=== PATIENT | male | born 1985 | race American Indian/Alaskan Native ===

== ENCOUNTER 2017-12-10 13:51 | Inpatient (IN) | payer MEDICAID, OTHER ==
[2017-12-10 15:54] LABS: BASO % 0.4 % (0.0-2.0); EOS # 0.1 K/uL (0.0-0.7); EOS % 1.1 % (0.0-4.0); HEMOGLOBIN 13.9 g/dL (12.0-18.0); LYMPH # 2.1 K/uL (1.0-4.3); LYMPH % 26.5 % (20.0-40.0); MEAN CELL VOLUME 88.2 fL (80.0-94.0); MEAN CORPUSCULAR HEMOGLOBIN 29.7 pg (27.0-31.0); MEAN CORPUSCULAR HGB CONC 33.6 g/dL (33.0-37.0); MEAN PLATELET VOLUME 7.5 fL (7.2-11.7); MONO # 0.7 K/uL (0.0-0.8); MONO % 8.8 % (0.0-10.0); NEUT % 63.2 % (50.0-75.0); RBC 4.68 Mil/uL (4.40-5.90); RED CELL DISTRIBUTION WIDTH 13.5 % (11.5-14.5); WHITE BLOOD COUNT 7.9 K/uL (4.8-10.8)
[2017-12-10 16:06] LABS: ALB/GLOB RATIO 1.4 (1.0-2.1); ALBUMIN 4.3 g/dL (3.5-5.0); ALT/SGPT 19 U/L (21-72); AST/SGOT 16 U/L (17-59); BLOOD UREA NITROGEN 17 mg/dL (9-20); CALCIUM 9.3 mg/dl (8.6-10.4); GFR AFRICAN-AMERICAN > 60; GFR NON-AFRICAN AMERICAN > 60
--- NOTE | 2017-12-10 16:08 | C.PDOC ---
History Of Present Illness 32 y/o male presents to ED with suicidal thoughts and states "I don't feel good ". Patient states he is homeless and admits to taking PCP yesterday. Denies taking any medication. No h/o seizures. Denies chest pain, sob, abdominal pain, or trauma. Time Seen by Provider: 12/10/17 15:02 Chief Complaint (Nursing): Psychiatric Evaluation History Per: Patient History/Exam Limitations: no limitations Onset/Duration Of Symptoms: Days Current Symptoms Are (Timing): Still Present Suicide/Self Injury Attempted (Context): None Modifying Factor(s): Narcotics Past Medical History Reviewed: Historical Data, Nursing Documentation, Vital Signs Vital Signs: Last Vital Signs Temp 97.6 F 12/10/17 19:47 Pulse 71 12/10/17 19:47 Resp 18 12/10/17 19:47 BP 110/72 12/10/17 19:47 Pulse Ox 96 12/10/17 19:47 - Medical History PMH: No Chronic Diseases Surgical History: No Surg Hx Family History: States: No Known Family Hx - Social History Hx Alcohol Use: Yes Hx Substance Use: Yes - Immunization History Hx Tetanus Toxoid Vaccination: No Hx Influenza Vaccination: No Hx Pneumococcal Vaccination: No Review Of Systems Constitutional: Negative for: Fever, Chills Gastrointestinal: Negative for: Nausea, Vomiting Skin: Negative for: Rash Psych: Positive for: Suicidal ideation. Negative for: Withdrawal Physical Exam - Physical Exam Appears: Non-toxic, No Acute Distress (calm cooperative), Unkempt Skin: Warm, Dry, No Rash Head: Atraumatic, Normacephalic Eye(s): bilateral: Normal Inspection, EOMI Nose: Normal Oral Mucosa: Moist Neck: Normal ROM, Supple Chest: Symmetrical Cardiovascular: Rhythm Regular Respiratory: Normal Breath Sounds, No Rales, No Rhonchi, No Wheezing Gastrointestinal/Abdominal: Soft, No Tenderness, No Guarding, No Rebound Extremity: Normal ROM, Capillary Refill (<2 seconds) Neurological/Psych: Oriented x3, Normal Speech, Normal Cognition ED Course And Treatment - Laboratory Results Result Diagrams: 12/10/17 15:48 12/10/17 15:48 O2 Sat by Pulse Oximetry: 99 (RA) Pulse Ox Interpretation: Normal Progress Note: Pending crisis eval Disposition - Disposition Disposition: HOSPITALIZED Disposition Time: 19:00 Condition: STABLE - Clinical Impression Clinical Impression: Depression, Drug abuse - PA / ICU CLERK / Resident Statement MD/DO has reviewed & agrees with the documentation as recorded. - Scribe Statement The provider has reviewed the documentation as recorded by the Trenaibjay Velez All medical record entries made by the Jens were at my direction and personally dictated by me. I have reviewed the chart and agree that the record accurately reflects my personal performance of the history, physical exam, medical decision making, and the department course for this patient. I have also personally directed, reviewed, and agree with the discharge instructions and disposition.
[2017-12-10 17:48] LABS: SQUAMOUS EPITHIAL < 1 /hpf (0-5); URINE BACTERIA RARE (<OCC); URINE BILIRUBIN NEGATIVE (NEGATIVE); URINE BLOOD NEGATIVE (NEGATIVE); URINE CLARITY Clear (Clear); URINE COLOR Yellow (YELLOW); URINE GLUCOSE (UA) NORMAL (Normal); URINE LEUKOCYTE ESTERASE NEG Leu/uL (Negative); URINE PROTEIN NEGATIVE (NEGATIVE); URINE UROBILINOGEN NORMAL mg/dL (0.2-1.0)
[2017-12-10 18:04] LABS: BARBITURATES, UR NEGATIVE (NEGATIVE); BENZODIAZEPINES, UR NEGATIVE (NEGATIVE); OPIATES, UR NEGATIVE (NEGATIVE)
[2017-12-10 18:07] LABS: PHENCYCLIDINE, UR POSITIVE (NEGATIVE)
--- NOTE | 2017-12-10 19:40 | PCM.BM ---
<Janett Whitley - Last Filed: 12/10/17 19:38> Treatment Plan Problems - Problems identified on initial assessmt Depression Date Initiated: 12/10/17 Time Initiated: 19:30 Assessment reference: NA Status: Active Suicide Ideation Date Initiated: 12/10/17 Time Initiated: 19:30 Assessment reference: NA Status: Active Treatment assets and liabiliti Patient Assests: cooperative, negotiates basic needs Patient Liabilities: financial problems, poor support system, substance abuse ( Alcohol, Marijuana and PCP), legal issue (Homeless) - Milieu Protocol Maintain good personal hygiene: daily Encourage regular showers, every shift Remind patient to perform daily oral care, every shift Assist patient to perform ADL's Conduct patient checks and document Observation sheet: Q15 minutes Maintain personal safety: every shift Educate patient to report safety concerns to staff, every shift Monitor environment for contraband/sharps Medication safety: Monitor for expected outcome, potential side effects: every shift, Assess barriers to learning: every shift, Assess readiness for medication education: every shift <Adri Daniels - Last Filed: 12/12/17 19:00> - Diagnosis (1) Depression Status: Acute Interventions: 12/12/17 19:00 * Assess/adjust medications daily and /or as needed * See patient on an individual basis 7x/week to assess symptoms of depression * Monitor for side effects & effectiveness of medications * (2) Drug abuse Status: Acute Interventions: 12/12/17 19:00 * Assess 7x/week regarding severity of withdrawal * Educate regarding risks, benefits, side effects and alternatives of medications * Use Motivational Interviewing for abstinence * Use CBT for relapse prevention * Medication management for withdrawal symptoms * Encourage medication assisted treatment * <Eileen Stewart - Last Filed: 12/14/17 11:24> Family Contact Family involvement: Famliy/SO not involved - Goals for Treatment Patient goals for treatment: "I want to go to rehab." Discharge/Continuing Care - Education Needs Education Needs: Patient Medication, Patient Coping Skills, Patient Placement options, Patient Community resources - Discharge Discharge Criteria: Tolerates medication w/o severe side effects, Reduction of target symptoms Discharge to:: Substance Abuse Rehab - Treatment Team Participation Discussed with Family/SO: No Was Patient/Family/SO present at Treatment Team Meeting: Yes
[2017-12-11] MEDS: Multiple Vitamins Tab PO SCH (10:21)
--- NOTE | 2017-12-11 10:46 | PCM.PSYCH ---
Initial Psychiatric Evaluation - Initial Psychiatric Evaluation Type of Admission: Voluntary Legal Status: Capacity Chief Complaint (in patient's own words): "I don't feel good." History of Present Illness and Precipitating Events: Patient is a 32 year old AA male with a history of poly substance abuse and homelessness self-referred to [facility] for a psych eval. Please note that patient was triaged as Ezequiel Farah but per [facility] clinician Jorge Davis who verified patents report his correct legal name is Pedro Iqabl. Patient states on assessment, "I don't feel good. I'm suicidal, depressed, angry and homeless." Patient also report not eating. Patient repeated this statement throughout the assessment. Often in response to yes or no questions. Patient repeated it as if he as reading off a script. Patients plan to kill himself is to Stop my pulse. Bakery Machine Mechanic Supervisor asked patient how he would do this and he gestured by placing his hands around his neck and stated like this. In fact patient reports a history of a previous attempt the same way. Patient also reports he had been feeling homicidal prior to arrival with the plan to kill Najafeh Sessions. Patients speech is very softy and mumbled so the name is not clear. When asked his plan, patient states I was going to kill him. Patient reports using alcohol, marijuana and PCP daily. Patient is a poor historian and when asked about his psych history he reported only a history at [facility]. Patient could not provide this news writer names of any meds. Patient denies taking any psych meds at any point. Obtaining medical history from patient was difficult. He reports a history of seizure (had one the other day) as well as high bp and diabetes. This is not verified. Patient reports being homeless for the past 5 years and is currently living on [address]. Patient states he hears voices, mostly his mom. Patient is paranoid; he feels people on the street are following him and trying to take all his money. He states he was sent here by Adama Manzano and was suppose to play in the [employer]. Per collateral patient was seen in [facility] in 2004 and transferred to [facility]. Patient was 19 years old at the time and presented with homicidal ideation with a plan to purchase a gun and kill his entire family. Patient was also using marijuana daily and given the diagnosis of Bipolar disorder. Patient has no history of visits as an adult for psych or detox at [facility]. Psych history: Bipolar Disorder, Alcohol Use Disorder Medical history: Denies Allergies: NKDA Family Hx: Substance Use Current Medications: Active Medications Generic Name Dose Route Start Last Admin Trade Name Freq PRN Reason Stop Dose Admin Folic Acid 1 mg 12/11/17 10:00 12/11/17 10:21 Folic Acid PO 1 mg DAILY ADARSH Administration Gabapentin 400 mg 12/11/17 10:00 12/11/17 10:21 Neurontin PO 400 mg TID ADARSH Administration Hydroxyzine HCl 50 mg 12/10/17 23:39 Atarax PO Q6H PRN Anxiety Ibuprofen 600 mg 12/10/17 23:39 Motrin Tab PO Q6H PRN Pain, moderate (4-7) Lorazepam 1 mg 12/10/17 23:39 Ativan PO Q6H PRN severe agitation Multivitamins 1 tab 12/11/17 10:00 12/11/17 10:21 Hexavitamin PO 1 tab DAILY ADARSH Administration Pneumococcal Polyvalent Vaccine 0.5 ml 12/12/17 10:00 Pneumovax 23 Vaccine IM 12/12/17 10:01 .ONCE ONE Sertraline HCl 50 mg 12/11/17 10:00 12/11/17 10:21 Zoloft PO 50 mg DAILY ADARSH Administration Thiamine HCl 100 mg 12/11/17 10:00 12/11/17 10:21 Vitamin B1 Tab PO 100 mg DAILY ADARSH Administration Trazodone HCl 100 mg 12/11/17 22:00 Desyrel PO [facility] Past Psychiatric History - Past Psychiatric History Previous Treatment History: Inpatient Prior Psychiatric Treatment: [facility] History of ETOH/Drug Use: Alcohol use Disorder PCP Use Cannabis Use Disorder Pertinent Medical Hx (Current Medical&Sleep Prob, Allergies): Allergies Allergy/AdvReac Type Severity Reaction Status Date / Time No Known Allergies Allergy Verified 12/10/17 14:24 No Known Home Med 12/10/17 Review of Systems - Review of Systems All systems: reviewed and no additional remarkable complaints except - Psychiatric Psychiatric: Auditory Hallucinations, Depression, Hallucinations, Homicidal Ideation, Paranoia, Suicidal Ideation. absent: Anxiety, Hopelessness Mental Status Examination - Personal Presentation Personal Presentation: Looks older than stated age - Affect Affect: Broad - Motor Activity Motor Activity: Calm - Reliability in Providing Information Reliability in Providing Information: Poor, due to alteration in thoughts, Poor , due to altered mood - Speech Speech: Disorganized, Tangential - Mood Mood: Euphoric, Homicidal Ideation - Formal Thought Process Formal Thought Process: Hallucinations, Delusions, Paranoia, Loosening of associations, Flight of ideas - Hallucinations/Delusions Hallucinations: Auditory Delusions: Granduer, Persecution - Obsessions/Compulsions Obsessions: No Compulsions: No - Cognitive Functions Orientation: Person, Situation Sensorium: Alert Attention/Concentration: Attentive, Easily distracted Abstract Thinking: [place] Estimate of Intelligence: Below average Judgement: Imparied, as evidence by: Poor judgement, Imparied, as evidence by: Lack of insight into illness - Risk Risk: Suicidal, Homicidal, Diminished functioning - Limitations Limitations: Living alone DSM 5 DX - DSM 5 DSM 5 Diagnosis: Bipolar disorder mixed severe with psychotic features R/O Schizoaffective disorder bipolar type Alcohol Use Disorder, moderate PCP use disorder moderate - Recommended/Plan of Treatment Treatment Recommendations and Plan of Treatment: Bipolar disorder mixed severe with psychotic features R/O Schizoaffective disorder bipolar type Alcohol Use Disorder, moderate PCP use disorder moderate Start Zoloft 50mg Start Gabapentin 400mg TID Start Trazadone 100mg for sleep Proloxin 5 mg PO BID Cogentin 1 mg PO BID All risks, benefits and alternatives of the meds discussed, and the pt agreed and understood. Attend groups and activities Individual therapy daily Psychoeducation and support daily Encourage compliance with meds and after care Refer to outpatient program Teach healthy lifestyle methods, i.e. diet, exercise, meditation Smoking cessation and patch
[2017-12-12] MEDS: Multiple Vitamins Tab PO SCH (09:37)
[2017-12-12] MEDS ORDERED: Pneumococcal 23-Valent Vaccine IM ONE (10:00)
--- NOTE | 2017-12-12 18:59 | PCM.PYCHPN ---
Psychiatric Progress Note - Psychiatric Progress Note Patient seen today, length of contact: 15 min Patient Chief Complaint: "I don't feel good." Problems Identified/Issues Discussed: Patient seen and evaluated, chart reviewed and discussed with the nurse. Patient remained disorganized and internally preoccupied. Patient still appears paranoid and delusional. He reports depressed mood and he remained isolated, confined and withdrawn. Patient is compliant with medications and denies any side effects. Support and psychoeducation given. Medication Change: Yes Medical Record Reviewed: Yes Mental Status Examination - Cognitive Function Orientation: Person, Place, Situation, Time Memory: Intact Attention: Poor Concentration: Poor Association: Loose Fund of Knowledge: Poor - Mood Mood: Depressed, Anxious - Affect Affect: Constricted - Speech Speech: Soft - Formal Thought Process Formal Thought Process: Hallucinations, Delusions, Paranoia, Loosening of associations, Flight of ideas - Suicidal Ideation Suicidal Ideation: No - Homicidal Ideation Homicidal Ideation: No Goal/Treatment Plan - Goal/Treatment Plan Need for Continued Stay: Severe depression anxiety, Severe functional impairment Progress Toward Problem(s) and Goals/Treatment Plan: Bipolar disorder mixed severe with psychotic features R/O Schizoaffective disorder bipolar type Alcohol Use Disorder, moderate PCP use disorder moderate Zoloft 50mg Gabapentin 400mg TID Trazadone 100mg for sleep Proloxin 5 mg PO BID Cogentin 1 mg PO BID All risks, benefits and alternatives of the meds discussed, and the pt agreed and understood. Attend groups and activities Individual therapy daily Psychoeducation and support daily Encourage compliance with meds and after care Refer to outpatient program Teach healthy lifestyle methods, i.e. diet, exercise, meditation Smoking cessation and patch - Smoking Cessation Smoking Cessation Initiated: No
[2017-12-13] MEDS: Multiple Vitamins Tab PO SCH (09:37)
[2017-12-14] MEDS: Multiple Vitamins Tab PO SCH (10:20)
[2017-12-15] MEDS: Multiple Vitamins Tab PO SCH (09:57)
--- NOTE | 2017-12-15 13:02 | PCM.PYCHPN ---
Psychiatric Progress Note - Psychiatric Progress Note Patient seen today, length of contact: 15 min Patient Chief Complaint: "I m feeling good." Problems Identified/Issues Discussed: Patient seen and evaluated, chart reviewed and discussed with the nurse. Staff reports the patient is less delusional and less paranoid than before. He appears more organized and less internally preoccupied. He reports depressed mood and he remained isolated, confined and withdrawn. Patient is compliant with medications and denies any side effects. Support and psychoeducation given. Medication Change: No Medical Record Reviewed: Yes Mental Status Examination - Cognitive Function Orientation: Person, Place, Situation, Time Memory: Intact Attention: WNL Concentration: Poor Association: Loose Fund of Knowledge: Poor - Mood Mood: Depressed, Anxious - Affect Affect: Constricted - Speech Speech: Soft - Formal Thought Process Formal Thought Process: Hallucinations, Paranoia, Loosening of associations - Suicidal Ideation Suicidal Ideation: No - Homicidal Ideation Homicidal Ideation: No Goal/Treatment Plan - Goal/Treatment Plan Need for Continued Stay: Severe depression anxiety, Severe functional impairment Progress Toward Problem(s) and Goals/Treatment Plan: Bipolar disorder mixed severe with psychotic features R/O Schizoaffective disorder bipolar type Alcohol Use Disorder, moderate PCP use disorder moderate Zoloft 100 mg Gabapentin 400mg TID Trazadone 100mg for sleep Proloxin 10 mg PO BID Cogentin 1 mg PO BID All risks, benefits and alternatives of the meds discussed, and the pt agreed and understood. Attend groups and activities Individual therapy daily Psychoeducation and support daily Encourage compliance with meds and after care Refer to outpatient program Teach healthy lifestyle methods, i.e. diet, exercise, meditation Smoking cessation and patch - Smoking Cessation Smoking Cessation Initiated: No
[2017-12-16] MEDS: Multiple Vitamins Tab PO SCH (10:26)
[2017-12-17 06:58] VITALS: RESP 20
[2017-12-17] MEDS: Multiple Vitamins Tab PO SCH (09:14)
--- NOTE | 2017-12-17 14:32 | PCM.BM ---
<Jenny Pearl - Last Filed: 12/17/17 14:31> Treatment Plan Problems - Problems identified on initial assessmt Depression Date Initiated: 12/10/17 Time Initiated: 19:30 Assessment reference: NA Status: Active Suicide Ideation Date Initiated: 12/10/17 Time Initiated: 19:30 Assessment reference: NA Status: Active Treatment assets and liabiliti Patient Assests: cooperative, negotiates basic needs Patient Liabilities: financial problems, poor support system, substance abuse ( Alcohol, Marijuana and PCP), legal issue (Homeless) - Milieu Protocol Maintain good personal hygiene: daily Encourage regular showers, every shift Remind patient to perform daily oral care, every shift Assist patient to perform ADL's Conduct patient checks and document Observation sheet: Q15 minutes Maintain personal safety: every shift Educate patient to report safety concerns to staff, every shift Monitor environment for contraband/sharps Medication safety: Monitor for expected outcome, potential side effects: every shift, Assess barriers to learning: every shift, Assess readiness for medication education: every shift Milieu Narrative: Bipolar disorder mixed severe with psychotic features R/O Schizoaffective disorder bipolar type Alcohol Use Disorder, moderate PCP use disorder moderate Zoloft 100 mg Gabapentin 400mg TID Trazadone 100mg for sleep Proloxin 10 mg PO BID Cogentin 1 mg PO BID All risks, benefits and alternatives of the meds discussed, and the pt agreed and understood. Attend groups and activities Individual therapy daily Psychoeducation and support daily Encourage compliance with meds and after care Refer to outpatient program Teach healthy lifestyle methods, i.e. diet, exercise, meditation Smoking cessation and patch Family Contact Family involvement: Famliy/SO not involved - Goals for Treatment Patient goals for treatment: "I want to go to rehab." Discharge/Continuing Care - Education Needs Education Needs: Patient Medication, Patient Coping Skills, Patient Placement options, Patient Community resources - Discharge Discharge Criteria: Tolerates medication w/o severe side effects, Reduction of target symptoms Discharge to:: Substance Abuse Rehab - Treatment Team Participation Patient/Family/SO Statement: Bipolar disorder mixed severe with psychotic features R/O Schizoaffective disorder bipolar type Alcohol Use Disorder, moderate PCP use disorder moderate Zoloft 100 mg Gabapentin 400mg TID Trazadone 100mg for sleep Proloxin 10 mg PO BID Cogentin 1 mg PO BID All risks, benefits and alternatives of the meds discussed, and the pt agreed and understood. Attend groups and activities Individual therapy daily Psychoeducation and support daily Encourage compliance with meds and after care Refer to outpatient program Teach healthy lifestyle methods, i.e. diet, exercise, meditation Smoking cessation and patch Discussed with Family/SO: No Was Patient/Family/SO present at Treatment Team Meeting: Yes Treatment Plan Review Patient participation: No Family/SO/Caregiver participation: Yes - Problem Depression Time Initiated: 19:30 Suicide Ideation Time Initiated: 19:30 - Discharge / Continuing Care Discharge to:: Substance Abuse Rehab Behavioral Health Services: Residential treatment Health Needs: Alcohol/Drug treatment <Emily Summers - Last Filed: 12/17/17 14:53> Treatment Plan Review - Problem Depression Date Initiated: 12/17/17 Time Initiated: 14:53 Progress toward outcomes: improved Suicide Ideation Date Initiated: 12/17/17 Time Initiated: 14:53 Progress toward outcomes: resolved <Adri Daniels - Last Filed: 12/21/17 00:42> - Diagnosis (1) Depression Status: Acute Interventions: 12/21/17 00:42 * Assess/adjust medications daily and /or as needed * See patient on an individual basis 7x/week to assess symptoms of depression * Monitor for side effects & effectiveness of medications * (2) Drug abuse Status: Acute Interventions: 12/21/17 00:42 * Assess 7x/week regarding severity of withdrawal * Educate regarding risks, benefits, side effects and alternatives of medications * Use Motivational Interviewing for abstinence * Use CBT for relapse prevention * Medication management for withdrawal symptoms * Encourage medication assisted treatment *
[2017-12-18 06:43] VITALS: O2SAT 98
[2017-12-18] MEDS: Multiple Vitamins Tab PO SCH (13:25)
--- NOTE | 2017-12-18 14:30 | PCM.PYCHPN ---
Psychiatric Progress Note - Psychiatric Progress Note Patient seen today, length of contact: 15 min Patient Chief Complaint: "I m feeling good." Problems Identified/Issues Discussed: Patient seen and evaluated, chart reviewed and discussed with the nurse. He appears more organized and less depressed mood. Patient is compliant with medications and denies any side effects. Support and psychoeducation given. Medication Change: No Medical Record Reviewed: Yes Mental Status Examination - Cognitive Function Orientation: Person, Place, Situation, Time Memory: Intact Attention: WNL Concentration: WNL Association: WNL Fund of Knowledge: WNL - Mood Mood: Anxious - Affect Affect: Constricted - Speech Speech: Soft - Formal Thought Process Formal Thought Process: No Impairment - Suicidal Ideation Suicidal Ideation: No - Homicidal Ideation Homicidal Ideation: No Goal/Treatment Plan - Goal/Treatment Plan Need for Continued Stay: Severe depression anxiety, Severe functional impairment Progress Toward Problem(s) and Goals/Treatment Plan: Bipolar disorder mixed severe with psychotic features R/O Schizoaffective disorder bipolar type Alcohol Use Disorder, moderate PCP use disorder moderate Zoloft 100 mg Gabapentin 400mg TID Trazadone 100mg for sleep Proloxin 10 mg PO BID Cogentin 1 mg PO BID All risks, benefits and alternatives of the meds discussed, and the pt agreed and understood. Attend groups and activities Individual therapy daily Psychoeducation and support daily Encourage compliance with meds and after care Refer to outpatient program Teach healthy lifestyle methods, i.e. diet, exercise, meditation Smoking cessation and patch
[2017-12-19 09:46] VITALS: BP 132/70; PULSE 81; TEMP 97.3
[2017-12-19] MEDS: Multiple Vitamins Tab PO SCH (10:58)
--- NOTE | 2017-12-19 11:03 | PCM.PYCHDC ---
Mental Status Examination - Mental Status Examination Orientation: Person, Place, Situation, Time Memory: Intact Mood: Neutral Affect: Constricted Speech: Soft Attention: WNL Concentration: WNL Association: WNL Fund of Knowledge: WNL Formal Thought Process: No Impairment Description of patient's judgement and insight: good, fair Psychotic Thoughts and Behaviors: denies any AVH Suicidal Ideation: No Current Homicidal Ideation?: No Discharge Summary - Discharge Note Reason for Hospitalization: Patient is a 32 year old AA male with a history of poly substance abuse and homelessness self-referred to [facility] for a psych eval. Please note that patient was triaged as Ezequiel Farah but per [facility] clinician Jorge Davis who verified patents report his correct legal name is Pedro Iqbal. Patient states on assessment, "I don't feel good. I'm suicidal, depressed, angry and homeless." Patient also report not eating. Patient repeated this statement throughout the assessment. Often in response to yes or no questions. Patient repeated it as if he as reading off a script. Patients plan to kill himself is to Stop my pulse. Dean Of Education asked patient how he would do this and he gestured by placing his hands around his neck and stated like this. In fact patient reports a history of a previous attempt the same way. Patient also reports he had been feeling homicidal prior to arrival with the plan to kill Kristi Dorman. Patients speech is very softy and mumbled so the name is not clear. When asked his plan, patient states I was going to kill him. Patient reports using alcohol, marijuana and PCP daily. Patient is a poor historian and when asked about his psych history he reported only a history at [facility]. Patient could not provide this mortgage underwriter names of any meds. Patient denies taking any psych meds at any point. Obtaining medical history from patient was difficult. He reports a history of seizure (had one the other day) as well as high bp and diabetes. This is not verified. Patient reports being homeless for the past 5 years and is currently living on [address]. Patient states he hears voices, mostly his mom. Patient is paranoid; he feels people on the street are following him and trying to take all his money. He states he was sent here by Adama Manzano and was suppose to play in the [employer]. Per collateral patient was seen in [facility] in 2004 and transferred to [facility]. Patient was 19 years old at the time and presented with homicidal ideation with a plan to purchase a gun and kill his entire family. Patient was also using marijuana daily and given the diagnosis of Bipolar disorder. Patient has no history of visits as an adult for psych or [place] [facility] Consultations:: List each consultation separately and include: 1. Reason for request. 2. Findings. 3. Follow-up Summary of Hospital Course include:: 1. Description of specific treatment plan utilized for patients during their course of treatmen. 2. Summarize the time- course for resolution of acute symptoms and/or regressed behaviors. 3. Describe issues identified and worked on during hospitalization. 4. Describe medication utilized. 5. Describe medical problems identified and treated. 6. Reassessment of suicide risk Summary of Hospital Course: During the course of his stay, patient (pt) started progressively improving and he no longer remained irritable, depressed, and suicidal. His mood and anxiety symptoms were improved and he started attending groups and meetings and started socializing. Patient denied any feelings of hopelessness, helplessness, and worthlessness, denied any problem with the sleep or appetite, denied suicidal ideation or homicidal ideation. Pt denied any auditory or visual hallucinations. He denied any withdrawal symptoms. Some changes were made in his current medications and patient was discharged on following medications. He tolerated these medications very well and denied any side effects. He was discharged to the [facility] outpatient program. - Diagnosis (1) Depression Status: Acute (2) Drug abuse Status: Acute - Final Diagnosis (DSM 5) Condition upon Discharge: STABLE DSM 5: Bipolar disorder mixed severe with psychotic features R/O Schizoaffective disorder bipolar type Alcohol Use Disorder, moderate PCP use disorder moderate Disposition: HOME/ ROUTINE Follow-up Treatment Plan: Education: Pt was educated and counseled about the risks and benefits of taking and not taking medications. Pt was educated and counseled about the risks of drinking and abusing drugs. Pt was educated and counseled to go to the ER or call 911 if pt develop suicidal ideation or homicidal ideation, worsening of symptoms or severe side effects of the meds. Prescriptions/Medication Reconciliation: Benztropine [Cogentin] 1 mg PO BID #60 tab fluPHENAZine [Prolixin] 10 mg PO BID #60 tab Gabapentin [Neurontin] 400 mg PO BID #60 cap Sertraline [Zoloft] 100 mg PO DAILY #30 tab traZODone [Desyrel] 100 mg PO HS PRN #30 tab PRN Reason: Insomnia - Smoking Cessation Smoking Cessation Medication prescribed: No - Antipsychotic Medications Pt discharged on 2 or more routine antipsychotic medications: No
== END 2017-12-19 12:56 | disposition home or self-care (01) | DRG 430 ==
LOC: C.ER 13:51 → C.5E 18:18 → MERGE 18:18
PROVIDERS: ADMIT Psychiatry & Neurology Psychiatry; ATTEND Psychiatry & Neurology Psychiatry
DX: F31.64 Bipolar disorder, current episode mixed, severe, with psychotic features (principal); F16.10 Hallucinogen abuse, uncomplicated; R45.850 Homicidal ideations; R45.851 Suicidal ideations; Z59.0 Homelessness; F12.90 Cannabis use, unspecified, uncomplicated; E11.9 Type 2 diabetes mellitus without complications; F10.10 Alcohol abuse, uncomplicated

== ENCOUNTER 2018-01-01 10:11 | Inpatient (IN) | payer MEDICAID, OTHER ==
[2018-01-01 10:14] VITALS: BMI 25.1
--- NOTE | 2018-01-01 10:28 | C.PDOC ---
History Of Present Illness POOR HISTORIAN PERSIST DEPRESSION, SUICIDAL IDEATION. MULTIPLE RECENT ER VISITS FOR VARIOUS COMPLAINTS. RECENT DC FROM S/P ADMISSION FOR PSYCH. HO PCP ABUSE, HOMELESSNESS. RECENT PSYCH EVAL 12/26/17 CLEARED FOR OUTPT FU. ?OUTPT COMPLIANCE EXAM HOMELESS POOR HYGEINE NAD PSYCH FLAT AFFECT, ACTIVE SI. NO ACUTE INTOX REMAINDER NEG Time Seen by Provider: 01/01/18 10:23 Chief Complaint (Nursing): Psychiatric Evaluation History Per: Patient History/Exam Limitations: no limitations Onset/Duration Of Symptoms: Days Current Symptoms Are (Timing): Still Present Severity: Moderate Past Medical History Reviewed: Historical Data, Nursing Documentation, Vital Signs Vital Signs: Last Vital Signs Temp 97.7 F 01/01/18 10:14 Pulse 93 H 01/01/18 10:14 Resp 18 01/01/18 10:14 BP 137/83 01/01/18 10:14 Pulse Ox 99 01/01/18 12:49 - Medical History PMH: Anxiety, Bipolar Disorder, Depression, Schizophrenia Denies: Alzheimer's Disease, Asthma, Atrial Fibrillation, Bronchitis, Cardia Arrhythmia, CHF, COPD, Dementia, Diabetes, Emphysema, Hepatitis, HIV, HTN, Migraine, Mitral Valve Prolapse, Multiple Sclerosis, Parkinson's Disease, Peripheral Edema, Pneumonia, Pulmonary Embolism, Chronic Kidney Disease, Seizures, Sexually Transmitted Disease, Sleep Apnea, TIA Surgical History: Denies: Pacemaker - [facility] Procedures MEDICATION MANAGEMENT (05/19/17) SUTURE OF LIP LACERATION (11/22/13) TETANUS TOXOID ADMINIST (11/22/13) Family History: States: No Known Family Hx - Social History Hx Tobacco Use: No Hx Alcohol Use: Yes Hx Substance Use: Yes (daily) - Immunization History Hx Tetanus Toxoid Vaccination: No Hx Influenza Vaccination: No Hx Pneumococcal Vaccination: No Review Of Systems Except As Marked, All Systems Reviewed And Found Negative. Constitutional: Negative for: Fever, Chills Psych: Positive for: Depression, Suicidal ideation Physical Exam - Physical Exam Appears: No Acute Distress, Other (homless, poor hygiene) Skin: Normal Color, Warm Head: Atraumatic, Normacephalic Eye(s): bilateral: Normal Inspection Neurological/Psych: Oriented x3, Other (flat affect, active SI, no acute intox) ED Course And Treatment - Laboratory Results Result Diagrams: 01/01/18 11:24 01/01/18 11:24 O2 Sat by Pulse Oximetry: 99 (RA) Pulse Ox Interpretation: Normal Progress - Re-Evaluation Re-evaluation Note: 01/01/18 10:46 CRISIS @ BEDSIDE FOR EVAL 01/01/18 12:49 MED CLEAR PSYCH EVAL. CRISIS NOTIFIED - Data Reviewed Data Reviewed: Old records Medical Decision Making Medical Decision Making: Plan: --Labs --UA Disposition Counseled Patient/Family Regarding: Studies Performed, Diagnosis - Disposition Disposition: HOSPITALIZED Disposition Time: 12:58 Condition: STABLE Forms: [facility] [employer] [facility] (Samoan) - POA Present On Arrival: None - Clinical Impression Clinical Impression: Bipolar disorder, PCP abuse, Suicidal ideation - Scribe Statement The provider has reviewed the documentation as recorded by the Jens Sheppard Provider Attestation: All medical record entries made by the Scribe were at my direction and personally dictated by me. I have reviewed the chart and agree that the record accurately reflects my personal performance of the history, physical exam, medical decision making, and the department course for this patient. I have also personally directed, reviewed, and agree with the discharge instructions and disposition. Decision To Admit - Pt Status Changed To: Hospital Disposition Of: Inpatient - Admit Certification Admit to Inpatient:: After my assessment, the patient will require hospitalization for at least two midnights. This is because of the severity of symptoms shown, intensity of services needed, and/or the medical risk in this patient being treated as an outpatient. - InPatient: Physician Admission Certification: I certify that this patient requires 2 or more midnights of care for the following reason:: SEE NOTE - . Bed Request Type: Psychiatry Admitting Physician: Adri Daniels Patient Diagnosis: Bipolar disorder, PCP abuse, Suicidal ideation
[2018-01-01 11:26] LABS: BASO # 0.1 K/uL (0.0-0.2); BASO % 0.5 % (0.0-2.0); EOS # 0.1 K/uL (0.0-0.7); EOS % 1.2 % (0.0-4.0); HEMOGLOBIN 14.4 g/dL (12.0-18.0); LYMPH # 2.2 K/uL (1.0-4.3); LYMPH % 24.2 % (20.0-40.0); MEAN CELL VOLUME 87.8 fL (80.0-94.0); MEAN CORPUSCULAR HEMOGLOBIN 30.9 pg (27.0-31.0); MEAN CORPUSCULAR HGB CONC 35.1 g/dL (33.0-37.0); MEAN PLATELET VOLUME 7.5 fL (7.2-11.7); MONO # 0.7 K/uL (0.0-0.8); MONO % 7.2 % (0.0-10.0); NEUT # 6.2 K/uL (1.8-7.0); NEUT % 66.9 % (50.0-75.0); RBC 4.66 Mil/uL (4.40-5.90); RED CELL DISTRIBUTION WIDTH 13.6 % (11.5-14.5); WHITE BLOOD COUNT 9.3 K/uL (4.8-10.8)
[2018-01-01 11:30] LABS: URINE BILIRUBIN NEGATIVE (NEGATIVE); URINE BLOOD NEGATIVE (NEGATIVE); URINE CLARITY Clear (Clear); URINE COLOR Yellow (YELLOW); URINE GLUCOSE (UA) NORMAL (Normal); URINE LEUKOCYTE ESTERASE NEG Leu/uL (Negative); URINE PROTEIN NEGATIVE (NEGATIVE); URINE UROBILINOGEN NORMAL mg/dL (0.2-1.0)
[2018-01-01 11:41] LABS: ALB/GLOB RATIO 1.5 (1.0-2.1); ALBUMIN 4.4 g/dL (3.5-5.0); ALT/SGPT 32 U/L (21-72); AST/SGOT 35 U/L (17-59); BLOOD UREA NITROGEN 11 mg/dL (9-20); CALCIUM 9.3 mg/dl (8.6-10.4); GFR AFRICAN-AMERICAN > 60; GFR NON-AFRICAN AMERICAN > 60
[2018-01-01 12:18] LABS: BARBITURATES, UR NEGATIVE (NEGATIVE); OPIATES, UR NEGATIVE (NEGATIVE)
[2018-01-01 12:38] LABS: BENZODIAZEPINES, UR NEGATIVE (NEGATIVE)
[2018-01-01 12:42] LABS: PHENCYCLIDINE, UR POSITIVE (NEGATIVE)
[2018-01-01 13:45] VITALS: O2SAT 97
--- NOTE | 2018-01-01 14:16 | PCM.BM ---
<Brianna Schaffer - Last Filed: 01/01/18 14:15> Treatment Plan Problems - Problems identified on initial assessmt Suicidal Ideation Date Initiated: 01/01/18 Time Initiated: 14:15 Assessment reference: NA Status: Monitor Auditory Hallucination Date Initiated: 01/01/18 Time Initiated: 14:15 Assessment reference: NA Status: Monitor Treatment assets and liabiliti Patient Assests: adapts well, negotiates basic needs, cognitively intact, other , cooperative, resourceful, self-reliant, ADL independent Patient Liabilities: poor support system - Milieu Protocol Maintain good personal hygiene: daily Encourage regular showers, every shift Remind patient to perform daily oral care, every shift Assist patient to perform ADL's Maintain personal safety: every shift Educate patient to report safety concerns to staff, every shift Monitor environment for contraband/sharps Medication safety: Monitor for expected outcome, potential side effects: every shift, Assess barriers to learning: every shift, Assess readiness for medication education: every shift <Eileen Stewart - Last Filed: 01/02/18 13:54> Family Contact Family involvement: Famliy/SO not involved - Goals for Treatment Patient goals for treatment: "I [facility] to go to [facility] Discharge/Continuing Care - Education Needs Education Needs: Patient Medication, Patient Coping Skills, Patient Placement options, Patient Community resources - Discharge Discharge Criteria: Tolerates medication w/o severe side effects, No longer exhibiting s/s of withdrawal, Reduction of target symptoms Discharge to:: Substance Abuse Rehab - Treatment Team Participation Discussed with Family/SO: No Was Patient/Family/SO present at Treatment Team Meeting: Yes
[2018-01-01] MEDS ORDERED: Aluminum Hydroxide/Magnesium Hydroxide Susp (30 mL) PO PRN (17:16)
--- NOTE | 2018-01-02 11:37 | PCM.PSYCH ---
Initial Psychiatric Evaluation - Initial Psychiatric Evaluation Type of Admission: Voluntary Legal Status: Capacity Chief Complaint (in patient's own words): CC: "I don't feel well, they're after my money" History of Present Illness and Precipitating Events: HPI: 32 year old AA male with PMHx of bipolar disorder and substance abuse presents complaining of depression and AH command type to kill himself. Pt appeared paranoid and delusional throughout the interview and reports that that "people are after my money." Patient is homeless and a poor historian. Patient was seen at [facility] for similar complaints and polysubstance abuse 3 weeks ago. He claims that he ran out of medications Prozac and Risperdol 8 months ago. He admits to using PCP and marijuana daily as well as intermittent LSD, crack, and heroin. He states "I know people on the street are after my money, some people help me out but most of them are after my money. " He is depressed that he is homeless and unemployed, and angry that "people are after his money." He also complains of hearing voices telling him to "jump off a roof" or "kill yourself with a sharp object." He repeatedly claims "I'm gifted, talented, and smart." Pt reports he was told to follow up with [facility] but never did. Pt was discharged with a script to fill the following medication but never filled the meds. Pt reports he also sees shadows "sometimes". He says the voices started 1 hour captain assistant reporting that the voices are telling him to hurt himself and others. Pt reports he wants to hurt a male by the name of "Marnie" who he grew up with. Pt does not know where this person lives or their phone number and has not seen him in months. 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 PMHx: None reported Current Medications: Active Medications Generic Name Dose Route Start Last Admin Trade Name Freq PRN Reason Stop Dose Admin Al Hydrox/Mg Hydrox/Simethicone 30 ml 01/01/18 17:16 Maalox 30 Ml PO TID PRN Indigestion / Heartburn Benztropine Mesylate 2 mg 01/01/18 17:16 Cogentin PO Q6 PRN Extra Pyramidal Symptoms Clonidine HCl 0.1 mg 01/01/18 17:16 Catapres PO Q8 PRN COWS Score More or Equal to 5 Diphenhydramine HCl 50 mg 01/01/18 17:16 Benadryl PO Q6 PRN Extra Pyramidal Symptoms Gabapentin 300 mg 01/01/18 18:00 01/02/18 10:07 Neurontin PO 300 mg TID ADARSH Administration Haloperidol 5 mg 01/01/18 17:16 Haldol PO Q8 PRN Moderate Agitation Hydroxyzine HCl 25 mg 01/01/18 17:18 01/01/18 21:58 Atarax PO 25 mg Q6 PRN Administration Agitation Loperamide HCl 2 mg 01/01/18 17:16 Imodium PO Q8 PRN Diarrhea Ondansetron HCl 4 mg 01/01/18 17:16 Zofran Tab PO Q8 PRN Nausea/Vomiting Trazodone HCl 50 mg 01/01/18 22:00 01/01/18 21:58 Desyrel PO 50 mg HS ADARSH Administration Past Psychiatric History - Past Psychiatric History Previous Treatment History: Inpatient Pertinent Medical Hx (Current Medical&Sleep Prob, Allergies): Allergies Allergy/AdvReac Type Severity Reaction Status Date / Time No Known Allergies Allergy Verified 01/01/18 10:14 Benztropine [Cogentin] 1 mg PO BID #60 tab 12/19/17 Gabapentin [Neurontin] 400 mg PO BID #60 cap 12/19/17 Sertraline [Zoloft] 100 mg PO DAILY #30 tab 12/19/17 fluPHENAZine [Prolixin] 10 mg PO BID #60 tab 12/19/17 traZODone [Desyrel] 100 mg PO HS PRN #30 tab 12/19/17 Review of Systems - Review of Systems All systems: reviewed and no additional remarkable complaints except - Psychiatric Psychiatric: Anxiety, Auditory Hallucinations, Irritability, Paranoia, Suicidal Ideation Mental Status Examination - Personal Presentation Personal Presentation: Looks stated age - Affect Affect: Constricted, Depressed - Motor Activity Motor Activity: Calm - Reliability in Providing Information Reliability in Providing Information: Fair - Speech Speech: Disorganized - Mood Mood: Depressed, Anxious - Formal Thought Process Formal Thought Process: Hallucinations, Delusions, Paranoia, Loosening of associations - Hallucinations/Delusions Hallucinations: Auditory Delusions: Persecution - Obsessions/Compulsions Obsessions: No Compulsions: No - Cognitive Functions Orientation: Person, Place, Situation, Time Sensorium: Alert Attention/Concentration: Attentive Abstract Thinking: Stephenson Estimate of Intelligence: Below average Judgement: Imparied, as evidence by: Poor judgement, Imparied, as evidence by: Lack of insight into illness - Risk Risk: Suicidal, Homicidal, Diminished functioning - Limitations Limitations: Living alone DSM 5 DX - DSM 5 DSM 5 Diagnosis: Bipolar disorder mixed severe with psychotic features r/o Schizoaffective disorder bipolar type Cannabis use disorder severe PCP use disorder severe Alcohol use disorder moderate - Recommended/Plan of Treatment Treatment Recommendations and Plan of Treatment: Bipolar disorder mixed severe with psychotic features r/o Schizoaffective disorder bipolar type Cannabis use disorder severe PCP use disorder severe Alcohol use disorder moderate - psychoeducation - supportive therapy, group therapy, individual therapy - [place] for abstinence - Clonidine 0.1 mg PO Q8 prn - Cogentin 2 mg PO Q6 prn - Benadryl 50 mg PO Q6 prn - Haldol 5 mg PO Q8 prn - Atarax 25 mg PO Q6 prn - Imodium 2 mg PO Q8 prn - Zofran 4 mg PO Q8 prn - Trazodone 50 mg PO QHS - Prolixin 5 mg PO BID - Neurontin 300 mg PO tid - Smoking Cessation Smoking Cessation Initiated: No
--- NOTE | 2018-01-04 01:23 | PCM.PYCHPN ---
Psychiatric Progress Note - Psychiatric Progress Note Patient seen today, length of contact: 15 min Patient Chief Complaint: CC: "I don't feel well, they're after my money" Problems Identified/Issues Discussed: Patient seen and evaluated, chart reviewed and discussed with the nurse. Patient remained disorganized and internally preoccupied. He still reports of hearing voices. He reports depressed mood and still appears paranoid and delusional. Patient remained isolated, confined and withdrawn. Patient is compliant with medications and denies any side effects. Symptoms are improving but need more time to stabilize. Support and psychoeducation given. Medication Change: No Medical Record Reviewed: Yes Mental Status Examination - Cognitive Function Orientation: Person, Place, Situation, Time Memory: Intact Attention: WNL Concentration: Poor Association: Loose Fund of Knowledge: WNL - Mood Mood: Depressed, Anxious - Affect Affect: Constricted, Depressed - Speech Speech: Soft - Formal Thought Process Formal Thought Process: Hallucinations, Delusions, Paranoia, Loosening of associations - Suicidal Ideation Suicidal Ideation: No - Homicidal Ideation Homicidal Ideation: No Goal/Treatment Plan - Goal/Treatment Plan Need for Continued Stay: Severe depression anxiety, Severe functional impairment Progress Toward Problem(s) and Goals/Treatment Plan: Bipolar disorder mixed severe with psychotic features r/o Schizoaffective disorder bipolar type Cannabis use disorder severe PCP use disorder severe Alcohol use disorder moderate - psychoeducation - supportive therapy, group therapy, individual therapy - [place] for abstinence - Clonidine 0.1 mg PO Q8 prn - Cogentin 2 mg PO Q6 prn - Benadryl 50 mg PO Q6 prn - Haldol 5 mg PO Q8 prn - Atarax 25 mg PO Q6 prn - Imodium 2 mg PO Q8 prn - Zofran 4 mg PO Q8 prn - Trazodone 50 mg PO QHS - Prolixin 5 mg PO BID - Neurontin 300 mg PO tid - Smoking Cessation Smoking Cessation Initiated: No
--- NOTE | 2018-01-04 10:06 | PCM.PYCHPN ---
Psychiatric Progress Note - Psychiatric Progress Note Patient seen today, length of contact: 15 min Patient Chief Complaint: CC: "I don't feel well, they're after my money" Problems Identified/Issues Discussed: Patient seen and evaluated, chart reviewed and discussed with the nurse. Patient appears less disorganized and internally preoccupied. He states he is feeling much better and has not had hallucinations or running thoughts since last night. He currently complains of a moderate squeezing headache. Patient remained isolated, confined and withdrawn. He has not been interacting with other patients. Patient is compliant with medications and denies any side effects. Symptoms are improving but need more time to stabilize. Support and psychoeducation given. Medication Change: No Medical Record Reviewed: Yes Mental Status Examination - Cognitive Function Orientation: Person, Place, Situation, Time Memory: Intact Attention: WNL Concentration: Poor Association: Loose Fund of Knowledge: WNL - Mood Mood: Depressed, Anxious - Affect Affect: Constricted, Depressed - Speech Speech: Soft - Formal Thought Process Formal Thought Process: Hallucinations, Delusions, Paranoia, Loosening of associations - Suicidal Ideation Suicidal Ideation: No - Homicidal Ideation Homicidal Ideation: No Goal/Treatment Plan - Goal/Treatment Plan Need for Continued Stay: Severe depression anxiety, Severe functional impairment Progress Toward Problem(s) and Goals/Treatment Plan: Bipolar disorder mixed severe with psychotic features r/o Schizoaffective disorder bipolar type Cannabis use disorder severe PCP use disorder severe Alcohol use disorder moderate - psychoeducation - supportive therapy, group therapy, individual therapy - [place] for abstinence - Clonidine 0.1 mg PO Q8 prn - Cogentin 2 mg PO Q6 prn - Benadryl 50 mg PO Q6 prn - Haldol 5 mg PO Q8 prn - Atarax 25 mg PO Q6 prn - Imodium 2 mg PO Q8 prn - Zofran 4 mg PO Q8 prn - Trazodone 50 mg PO QHS - Prolixin 5 mg PO BID - Neurontin 300 mg PO tid
--- NOTE | 2018-01-05 23:36 | PCM.PYCHPN ---
Psychiatric Progress Note - Psychiatric Progress Note Patient seen today, length of contact: 15 min Medication Change: No Medical Record Reviewed: Yes Mental Status Examination - Cognitive Function Orientation: Person, Place, Situation, Time Memory: Intact Attention: WNL Concentration: Poor Association: Loose Fund of Knowledge: WNL - Mood Mood: Depressed, Anxious - Affect Affect: Constricted, Depressed - Speech Speech: Soft - Formal Thought Process Formal Thought Process: Hallucinations, Delusions, Paranoia, Loosening of associations - Suicidal Ideation Suicidal Ideation: No - Homicidal Ideation Homicidal Ideation: No Goal/Treatment Plan - Goal/Treatment Plan Need for Continued Stay: Severe depression anxiety, Severe functional impairment
[2018-01-08 06:45] VITALS: BP 100/62; PULSE 63; RESP 20; TEMP 97.6
--- NOTE | 2018-01-08 10:29 | PCM.PYCHDC ---
Mental Status Examination - Mental Status Examination Orientation: Person, Place, Situation, Time Memory: Intact Mood: Neutral Affect: Constricted Speech: Soft Association: WNL Fund of Knowledge: WNL Formal Thought Process: No Impairment Description of patient's judgement and insight: good, fair Psychotic Thoughts and Behaviors: denies any AHV Suicidal Ideation: No Current Homicidal Ideation?: No Discharge Summary - Discharge Note Reason for Hospitalization: HPI: 32 year old AA male with PMHx of bipolar disorder and substance abuse presents complaining of depression and AH command type to kill himself. Pt appeared paranoid and delusional throughout the interview and reports that that "people are after my money." Patient is homeless and a poor historian. Patient was seen at [facility] for similar complaints and polysubstance abuse 3 weeks ago. He claims that he ran out of medications Prozac and Risperdol 8 months ago. He admits to using PCP and marijuana daily as well as intermittent LSD, crack, and heroin. He states "I know people on the street are after my money, some people help me out but most of them are after my money. " He is depressed that he is homeless and unemployed, and angry that "people are after his money." He also complains of hearing voices telling him to "jump off a roof" or "kill yourself with a sharp object." He repeatedly claims "I'm gifted, talented, and smart." Pt reports he was told to follow up with [employer] but never did. Pt was discharged with a script to fill the following medication but never filled the meds. Pt reports he also sees shadows "sometimes". 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 Pt reports he wants to hurt a male by the name of "Marnie" who he grew up with. Pt does not know where this person lives or their phone number and has not seen him in months. 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 Reason for request. 2. Findings. 3. Follow-up Summary of Hospital Course include:: 1. Description of specific treatment plan utilized for patients during their course of treatmen. 2. Summarize the time- course for resolution of acute symptoms and/or regressed behaviors. 3. Describe issues identified and worked on during hospitalization. 4. Describe medication utilized. 5. Describe medical problems identified and treated. 6. Reassessment of suicide risk Summary of Hospital Course: HPI: 32 year old AA male with PMHx of bipolar disorder and substance abuse presents complaining of depression and AH command type to kill himself. Pt appeared paranoid and delusional throughout the interview and reports that that "people are after my money." Patient is homeless and a poor historian. Patient was seen at [facility] for similar complaints and polysubstance abuse 3 weeks ago. He claims that he ran out of medications Prozac and Risperdol 8 months ago. He admits to using PCP and marijuana daily as well as intermittent LSD, crack, and heroin. He states "I know people on the street are after my money, some people help me out but most of them are after my money. " He is depressed that he is homeless and unemployed, and angry that "people are after his money." He also complains of hearing voices telling him to "jump off a roof" or "kill yourself with a sharp object." He repeatedly claims "I'm gifted, talented, and smart." Pt reports he was told to follow up with [facility] but never did. Pt was discharged with a script to fill the following medication but never filled the meds. Pt reports he also sees shadows "sometimes". 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 Pt reports he wants to hurt a male by the name of "Jafe" who he grew up with. Pt does not know where this person lives or their phone number and has not seen him in months. 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 PMHx: None reported - Final Diagnosis (DSM 5) Condition upon Discharge: STABLE Disposition: HOME/ ROUTINE Follow-up Treatment Plan: Bipolar disorder mixed severe with psychotic features r/o Schizoaffective disorder bipolar type Cannabis use disorder severe PCP use disorder severe Alcohol use disorder moderate - psychoeducation - supportive therapy, group therapy, individual therapy - [place] for abstinence - Clonidine 0.1 mg PO Q8 prn - Cogentin 2 mg PO Q6 prn - Benadryl 50 mg PO Q6 prn - Haldol 5 mg PO Q8 prn - Atarax 25 mg PO Q6 prn - Imodium 2 mg PO Q8 prn - Zofran 4 mg PO Q8 prn - Trazodone 50 mg PO QHS - Prolixin 5 mg PO BID - Neurontin 300 mg PO tid Prescriptions/Medication Reconciliation: fluPHENAZine [Prolixin] 5 mg PO BID #60 tab Gabapentin [Neurontin] 300 mg PO BID #60 cap traZODone [Desyrel] 50 mg PO HS #30 tab
== END 2018-01-08 12:55 | disposition home or self-care (01) | DRG 430 ==
LOC: C.ER 10:11 → C.5E 13:00
PROVIDERS: ADMIT Psychiatry & Neurology Psychiatry; ATTEND Psychiatry & Neurology Psychiatry
PROC: GZHZZZZ Group Psychotherapy (ICD-10-PCS; principal; 2018-01-01)
PROC: HZ56ZZZ Individual Psychotherapy for Substance Abuse Treatment, Psychoeducation (ICD-10-PCS; 2018-01-01)
PROC: HZ59ZZZ Individual Psychotherapy for Substance Abuse Treatment, Supportive (ICD-10-PCS; 2018-01-01)
PROC: GZ56ZZZ Individual Psychotherapy, Supportive (ICD-10-PCS; 2018-01-01)
DX: F31.64 Bipolar disorder, current episode mixed, severe, with psychotic features (principal); F16.20 Hallucinogen dependence, uncomplicated; F12.20 Cannabis dependence, uncomplicated; R45.851 Suicidal ideations; F10.10 Alcohol abuse, uncomplicated; Z59.0 Homelessness; Y90.0 Blood alcohol level of less than 20 mg/100 ml

== ENCOUNTER 2018-01-29 16:00 | Inpatient (IN) | payer MEDICAID, OTHER ==
[2018-01-29 16:00] VITALS: BMI 25.1
[2018-01-29 16:54] LABS: BASO # 0.1 K/uL (0.0-0.2); BASO % 0.9 % (0.0-2.0); EOS # 0.1 K/uL (0.0-0.7); EOS % 1.7 % (0.0-4.0); LYMPH # 2.3 K/uL (1.0-4.3); LYMPH % 30.4 % (20.0-40.0); MEAN CELL VOLUME 88.1 fL (80.0-94.0); MEAN CORPUSCULAR HEMOGLOBIN 30.1 pg (27.0-31.0); MEAN CORPUSCULAR HGB CONC 34.2 g/dL (33.0-37.0); MEAN PLATELET VOLUME 7.5 fL (7.2-11.7); MONO # 0.6 K/uL (0.0-0.8); MONO % 7.8 % (0.0-10.0); NEUT # 4.5 K/uL (1.8-7.0); NEUT % 59.2 % (50.0-75.0); NRBC % 0.1 % (0.0-2.0); RBC 4.32 Mil/uL (4.40-5.90); RED CELL DISTRIBUTION WIDTH 13.4 % (11.5-14.5); WHITE BLOOD COUNT 7.7 K/uL (4.8-10.8)
[2018-01-29 16:58] LABS: SQUAMOUS EPITHIAL < 1 /hpf (0-5); URINE BILIRUBIN NEGATIVE (NEGATIVE); URINE BLOOD NEGATIVE (NEGATIVE); URINE CLARITY Clear (Clear); URINE COLOR Yellow (YELLOW); URINE GLUCOSE (UA) NORMAL (Normal); URINE LEUKOCYTE ESTERASE NEG Leu/uL (Negative); URINE PROTEIN NEGATIVE (NEGATIVE); URINE UROBILINOGEN NORMAL mg/dL (0.2-1.0)
[2018-01-29 17:13] LABS: ALB/GLOB RATIO 1.5 (1.0-2.1); ALBUMIN 3.9 g/dL (3.5-5.0); ALT/SGPT 16 U/L (21-72); AST/SGOT 18 U/L (17-59); BLOOD UREA NITROGEN 19 mg/dL (9-20); CALCIUM 9.3 mg/dl (8.6-10.4); GFR AFRICAN-AMERICAN > 60; GFR NON-AFRICAN AMERICAN > 60
[2018-01-29 17:15] LABS: BARBITURATES, UR NEGATIVE (NEGATIVE); BENZODIAZEPINES, UR NEGATIVE (NEGATIVE); OPIATES, UR NEGATIVE (NEGATIVE)
[2018-01-29 17:24] LABS: PHENCYCLIDINE, UR POSITIVE (NEGATIVE)
--- NOTE | 2018-01-29 18:16 | C.PDOC ---
History Of Present Illness 32 y/o male,w/PMHx of PCP use, presents to the ER for evaluation of suicidal ideation which has been ongoing for the past 1 month and became worse today. Patient shaggy any suicide attempts and homicidal ideation. Time Seen by Provider: 01/29/18 16:22 Chief Complaint (Nursing): Psychiatric Evaluation History Per: Patient History/Exam Limitations: no limitations Onset/Duration Of Symptoms: Days Current Symptoms Are (Timing): Still Present Severity: Moderate Past Medical History Reviewed: Historical Data, Nursing Documentation, Vital Signs Vital Signs: Last Vital Signs Temp 98.8 F 01/29/18 16:00 Pulse 70 01/29/18 16:00 Resp 18 01/29/18 16:00 BP 119/83 01/29/18 16:00 Pulse Ox 98 01/29/18 18:32 - Medical History PMH: Anxiety, Bipolar Disorder, Depression, Schizophrenia Denies: Alzheimer's Disease, Asthma, Atrial Fibrillation, Bronchitis, Cardia Arrhythmia, CHF, COPD, Dementia, Diabetes, Emphysema, Hepatitis, HIV, HTN, Migraine, Mitral Valve Prolapse, Multiple Sclerosis, Parkinson's Disease, Peripheral Edema, Pneumonia, Pulmonary Embolism, Chronic Kidney Disease, Seizures, Sexually Transmitted Disease, Sleep Apnea, TIA Surgical History: Denies: Pacemaker - [facility] Procedures GROUP PSYCHOTHERAPY (01/01/18) INDIV PSYCHOTHERAPY FOR SUBSTANCE ABUSE TREATMENT, SUPPORT (01/01/18) INDIV PSYCHOTHERAPY FOR SUBSTANCE ABUSE, PSYCHOEDUCATION (01/01/18) INDIVIDUAL PSYCHOTHERAPY, SUPPORTIVE (01/01/18) MEDICATION MANAGEMENT (05/19/17) SUTURE OF LIP LACERATION (11/22/13) TETANUS TOXOID ADMINIST (11/22/13) Family History: States: No Known Family Hx - Social History Hx Tobacco Use: No Hx Alcohol Use: No Hx Substance Use: No - Immunization History Hx Tetanus Toxoid Vaccination: No Hx Influenza Vaccination: No Hx Pneumococcal Vaccination: No Review Of Systems Except As Marked, All Systems Reviewed And Found Negative. Constitutional: Negative for: Fever, Chills Psych: Positive for: Suicidal ideation Physical Exam - Physical Exam Appears: No Acute Distress Skin: Normal Color, Warm, Dry Head: Atraumatic, Normacephalic Eye(s): bilateral: Normal Inspection Nose: Normal Oral Mucosa: Moist Neck: Supple Chest: Symmetrical Cardiovascular: Rhythm Regular Respiratory: Normal Breath Sounds, No Rales, No Rhonchi, No Wheezing Gastrointestinal/Abdominal: Normal Exam, Soft, No Tenderness Neurological/Psych: Oriented x3, Normal Speech ED Course And Treatment - Laboratory Results Result Diagrams: 01/29/18 16:49 01/29/18 16:49 O2 Sat by Pulse Oximetry: 98 (RA) Pulse Ox Interpretation: Normal Medical Decision Making Medical Decision Making: Assessment: Suicidal Ideation Plan: --Labs --UA --Crisis Eval. Updates: Patient has been medically cleared for Crisis. Patient will be admitted under the service of for suicidal ideation and homicidal behavior. Disposition Discussed With : Mateusz Clemente Doctor Will See Patient In The: Hospital Counseled Patient/Family Regarding: Studies Performed, Diagnosis - Disposition Disposition: HOSPITALIZED Disposition Time: 18:28 Condition: FAIR Forms: [facility] (Indonesian) - Clinical Impression Clinical Impression: Homicidal behavior, Suicidal ideation - Scribe Statement The provider has reviewed the documentation as recorded by the Trenaibjay Sheppard Provider Attestation: All medical record entries made by the Trenaibjay were at my direction and personally dictated by me. I have reviewed the chart and agree that the record accurately reflects my personal performance of the history, physical exam, medical decision making, and the department course for this patient. I have also personally directed, reviewed, and agree with the discharge instructions and disposition.
--- NOTE | 2018-01-29 19:12 | PCM.BM ---
<Gissel Martinez - Last Filed: 01/29/18 19:10> Treatment Plan Problems - Problems identified on initial assessmt Suicidal ideation Date Initiated: 01/29/18 Time Initiated: 19:15 Assessment reference: NA Status: Active Treatment assets and liabiliti Patient Assests: adapts well, cooperative, resourceful, self-reliant, ADL independent, negotiates basic needs, cognitively intact, other Patient Liabilities: substance abuse - Milieu Protocol Maintain good personal hygiene: daily Encourage regular showers, daily Remind patient to perform daily oral care, daily Assist patient to perform ADL's Maintain personal safety: every shift Educate patient to report safety concerns to staff, every shift Monitor environment for contraband/sharps Medication safety: Monitor for expected outcome, potential side effects: every shift, Assess barriers to learning: every shift, Assess readiness for medication education: every shift <Jenny Pearl - Last Filed: 01/30/18 13:02> Family Contact Family involvement: Patient does not wish Family/SO involvement Family contact: Patient declines to allow family contact at present - Goals for Treatment Patient goals for treatment: " I [facility] to go to [facility]." Discharge/Continuing Care - Education Needs Education Needs: Patient Medication, Patient Diagnosis/Disease Process, Patient Coping Skills, Patient Placement options, Patient Community resources, Patient Aftercare Safety Plan - Discharge Discharge Criteria: Free of Suicidal thoughts, Normal sleep pattern, Ability to care for self, No longer exhibiting s/s of withdrawal, Reduction of target symptoms Discharge to:: Substance Abuse Rehab - Treatment Team Participation Discussed with Family/SO: No Was Patient/Family/SO present at Treatment Team Meeting: Yes
--- NOTE | 2018-01-30 14:13 | PCM.PSYCH ---
Initial Psychiatric Evaluation - Initial Psychiatric Evaluation Type of Admission: Voluntary Legal Status: Capacity Chief Complaint (in patient's own words): I was feeling depressed and suicidal.' History of Present Illness and Precipitating Events: Pt is a 32 year old AAM, male who presented to [facility] today for depressed mood and suicidal ideation. 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 Patient has been admitted to [facility] multiple times. He was last discharged few weeks ago. Pt is homeless and presented S/I. Pt stated, "I would jump off a roof or anything that's an object." Pt denies hx of Psych and currently denies A/V/T hallucinations. Pt stated, "I want to kill my friends because they messed around with a girl I messed with." Pt reported he has has S/I and thoughts for a long time but currently is not on any medication and denies psych treatments. Pt stated he was in the [employer] 5 months ago and wants to go back; when asked why pt did not go back upon d/c on 01/02/18 to the [facility] as was instructed pt said, "I don't know but I want to go back now." Pt drinks about 2-3 beers on a daily basis, smoke marijuana occassionally, smokes 1-6 PCP daily and smokes 7-8 cigs daily. he appeared paranoid and delusional. He denies any withdrawal symptoms. He reports depressed mood, feelings of hopelessness and helplessness. He reports poor sleep and poor appetite. He appears somewhat disorganized and internally preoccupied. However he denies any auditory or visual hallucinations. PMH: Denies Allergies: NKDA Current Medications: Active Medications Generic Name Dose Route Start Last Admin Trade Name Freq PRN Reason Stop Dose Admin Haloperidol 5 mg 01/29/18 19:35 Haldol PO Q6 PRN Agitation Hydroxyzine HCl 25 mg 01/29/18 19:40 Atarax PO Q6 PRN Anxiety Lorazepam 1 mg 01/29/18 19:43 Ativan PO Q6 PRN Anxiety Pneumococcal Polyvalent Vaccine 0.5 ml 02/01/18 10:00 Pneumovax 23 Vaccine IM 02/01/18 10:01 .ONCE ONE Trazodone HCl 50 mg 01/29/18 19:42 01/29/18 21:41 Desyrel PO 50 mg HS PRN Administration Insomnia Past Psychiatric History - Past Psychiatric History Previous Treatment History: Inpatient Pertinent Medical Hx (Current Medical&Sleep Prob, Allergies): Allergies Allergy/AdvReac Type Severity Reaction Status Date / Time No Known Allergies Allergy Verified 01/29/18 16:27 No Known Home Med 01/18/18 Review of Systems - Review of Systems All systems: reviewed and no additional remarkable complaints except - Psychiatric Psychiatric: Anxiety, Hopelessness, Irritability, Suicidal Ideation Mental Status Examination - Personal Presentation Personal Presentation: Looks stated age - Affect Affect: Constricted, Depressed - Motor Activity Motor Activity: Calm - Reliability in Providing Information Reliability in Providing Information: Poor, due to alteration in thoughts, Poor , due to altered mood - Speech Speech: Disorganized - Mood Mood: Depressed, Anxious - Formal Thought Process Formal Thought Process: Delusions, Paranoia, Loosening of associations - Hallucinations/Delusions Delusions: Persecution - Obsessions/Compulsions Obsessions: No Compulsions: No - Cognitive Functions Orientation: Person, Place, Situation, Time Sensorium: Alert Attention/Concentration: Attentive Abstract Thinking: [place] Estimate of Intelligence: Below average Judgement: Imparied, as evidence by: Poor judgement, Imparied, as evidence by: Lack of insight into illness - Risk Risk: Suicidal, Diminished functioning DSM 5 DX - DSM 5 DSM 5 Diagnosis: Bipolar disorder MRE mixed severe without psychotic features Alcohol use disorder moderate PCP use disorder severe Cannabis use disorder severe - Recommended/Plan of Treatment Treatment Recommendations and Plan of Treatment: Bipolar disorder MRE mixed severe without psychotic features CBT Psychoeducation Supportive therapy, group therapy, individual therapy Seroquel 200 mg PO QHS Gabapentin 100 mg po TID Alcohol use disorder moderate CBT Psychoeducation Supportive therapy, individual therapy Use [place] for abstinence PCP use disorder severe CBT Psychoeducation Supportive therapy, individual therapy Use [place] for abstinence Cannabis use disorder severe Monitor signs and symptoms Use [place] for abstinence - Smoking Cessation Smoking Cessation Initiated: No
[2018-01-31 07:57] VITALS: O2SAT 19
--- NOTE | 2018-01-31 10:01 | PCM.PYCHPN ---
Psychiatric Progress Note - Psychiatric Progress Note Patient seen today, length of contact: 15 min Patient Chief Complaint: I was feeling depressed and suicidal.' Problems Identified/Issues Discussed: Patient seen and evaluated, chart reviewed and discussed with the nurse. Patient reports irritability and agitation. He remained isolated and withdrawn. He still reports racing thoughts and poor concentration. However he denies any auditory or visual hallucinations. He also reports depressed mood and feelings of hopelessness and helplessness. He is taking medications and denies any side effects Symptoms are improving but he needs more time for stabilization. Supportive therapy and psychoeducation were given. Medication Change: Yes Medical Record Reviewed: Yes Mental Status Examination - Cognitive Function Orientation: Person, Place, Situation, Time Memory: Intact Attention: WNL Concentration: Poor Association: Loose Fund of Knowledge: Poor - Mood Mood: Depressed, Anxious - Affect Affect: Constricted, Depressed - Speech Speech: Soft - Formal Thought Process Formal Thought Process: Delusions, Paranoia, Loosening of associations - Suicidal Ideation Suicidal Ideation: No - Homicidal Ideation Homicidal Ideation: No Goal/Treatment Plan - Goal/Treatment Plan Need for Continued Stay: Severe depression anxiety, Severe functional impairment Progress Toward Problem(s) and Goals/Treatment Plan: Bipolar disorder MRE mixed severe without psychotic features CBT Psychoeducation Supportive therapy, group therapy, individual therapy Seroquel 200 mg PO QHS Gabapentin 100 mg po TID Alcohol use disorder moderate CBT Psychoeducation Supportive therapy, individual therapy Use [place] for abstinence PCP use disorder severe CBT Psychoeducation Supportive therapy, individual therapy Use [place] for abstinence Cannabis use disorder severe Monitor signs and symptoms Use [place] for abstinence - Smoking Cessation Smoking Cessation Initiated: No
[2018-02-01] MEDS ORDERED: Pneumococcal 23-Valent Vaccine IM ONE (10:00)
--- NOTE | 2018-02-02 12:22 | PCM.PYCHPN ---
Psychiatric Progress Note - Psychiatric Progress Note Patient seen today, length of contact: 15 min Patient Chief Complaint: I was feeling depressed' Problems Identified/Issues Discussed: Patient seen and evaluated, chart reviewed and discussed with the nurse. Patient reports irritability and agitation. He remained isolated and withdrawn. He still reports racing thoughts and poor concentration. However he denies any auditory or visual hallucinations. He also reports depressed mood and feelings of hopelessness and helplessness. He is taking medications and denies any side effects Symptoms are improving but he needs more time for stabilization. Supportive therapy and psychoeducation were given. Medication Change: Yes Medical Record Reviewed: Yes Mental Status Examination - Cognitive Function Orientation: Person, Place, Situation, Time Memory: Intact Attention: WNL Concentration: Poor Association: Loose Fund of Knowledge: WNL - Mood Mood: Depressed, Anxious - Affect Affect: Constricted, Depressed - Speech Speech: Soft - Formal Thought Process Formal Thought Process: Delusions, Paranoia, Loosening of associations - Suicidal Ideation Suicidal Ideation: No - Homicidal Ideation Homicidal Ideation: No Goal/Treatment Plan - Goal/Treatment Plan Need for Continued Stay: Severe depression anxiety, Severe functional impairment Progress Toward Problem(s) and Goals/Treatment Plan: Bipolar disorder MRE mixed severe without psychotic features CBT Psychoeducation Supportive therapy, group therapy, individual therapy dc Seroquel 200 mg PO QHS Start Abilify 5 mg PO QDAily Gabapentin 100 mg po TID Trazodone 50 mg PO QHS Alcohol use disorder moderate CBT Psychoeducation Supportive therapy, individual therapy Use [place] for abstinence PCP use disorder severe CBT Psychoeducation Supportive therapy, individual therapy Use [place] for abstinence Cannabis use disorder severe Monitor signs and symptoms Use [place] for abstinence
--- NOTE | 2018-02-03 15:29 | PCM.PYCHPN ---
Psychiatric Progress Note - Psychiatric Progress Note Patient seen today, length of contact: 15 min Patient Chief Complaint: I was feeling depressed' Problems Identified/Issues Discussed: Patient seen and evaluated, chart reviewed and discussed with the nurse. Patient reports irritability and agitation. He remained isolated and withdrawn. He still reports racing thoughts and poor concentration. However he denies any auditory or visual hallucinations. He also reports depressed mood and feelings of hopelessness and helplessness. He is taking medications and denies any side effects Symptoms are improving but he needs more time for stabilization. Supportive therapy and psychoeducation were given. Medication Change: Yes Medical Record Reviewed: Yes Mental Status Examination - Cognitive Function Orientation: Person, Place, Situation, Time Memory: Intact Attention: WNL Concentration: Poor Association: Loose Fund of Knowledge: WNL - Mood Mood: Depressed, Anxious - Affect Affect: Constricted, Depressed - Speech Speech: Soft - Formal Thought Process Formal Thought Process: Delusions, Paranoia, Loosening of associations - Suicidal Ideation Suicidal Ideation: No - Homicidal Ideation Homicidal Ideation: No Goal/Treatment Plan - Goal/Treatment Plan Need for Continued Stay: Severe depression anxiety, Severe functional impairment Progress Toward Problem(s) and Goals/Treatment Plan: Bipolar disorder MRE mixed severe without psychotic features CBT Psychoeducation Supportive therapy, group therapy, individual therapy dc Seroquel 200 mg PO QHS Start Abilify 5 mg PO QDAily Gabapentin 100 mg po TID Trazodone 50 mg PO QHS Alcohol use disorder moderate CBT Psychoeducation Supportive therapy, individual therapy Use [place] for abstinence PCP use disorder severe CBT Psychoeducation Supportive therapy, individual therapy Use [place] for abstinence Cannabis use disorder severe Monitor signs and symptoms Use [place] for abstinence
--- NOTE | 2018-02-03 15:29 | PCM.PYCHPN ---
Psychiatric Progress Note - Psychiatric Progress Note Patient seen today, length of contact: 15 min Patient Chief Complaint: I was feeling depressed' Problems Identified/Issues Discussed: Patient seen and evaluated, chart reviewed and discussed with the nurse. Patient reports some improvement in his irritability and agitation. He also reports improvement in the depressed mood and his sleep. He is taking medications and denies any side effects Symptoms are improving but he needs more time for stabilization. Supportive therapy and psychoeducation were given. Medication Change: Yes Medical Record Reviewed: Yes Mental Status Examination - Cognitive Function Orientation: Person, Place, Situation, Time Memory: Intact Attention: WNL Concentration: Poor Association: Loose Fund of Knowledge: WNL - Mood Mood: Depressed, Anxious - Affect Affect: Constricted, Depressed - Speech Speech: Soft - Formal Thought Process Formal Thought Process: Delusions, Paranoia, Loosening of associations - Suicidal Ideation Suicidal Ideation: No - Homicidal Ideation Homicidal Ideation: No Goal/Treatment Plan - Goal/Treatment Plan Need for Continued Stay: Severe depression anxiety, Severe functional impairment Progress Toward Problem(s) and Goals/Treatment Plan: Bipolar disorder MRE mixed severe without psychotic features CBT Psychoeducation Supportive therapy, group therapy, individual therapy Increase Abilify 10 mg PO QHS Gabapentin 300 mg po TID Trazodone 100 mg PO QHS Alcohol use disorder moderate CBT Psychoeducation Supportive therapy, individual therapy Use [place] for abstinence PCP use disorder severe CBT Psychoeducation Supportive therapy, individual therapy Use [place] for abstinence Cannabis use disorder severe Monitor signs and symptoms Use [place] for abstinence - Smoking Cessation Smoking Cessation Initiated: No
[2018-02-03 16:14] VITALS: RESP 18
[2018-02-04 06:35] VITALS: BP 115/68; PULSE 82; TEMP 98.2
--- NOTE | 2018-02-04 09:58 | PCM.PYCHDC ---
Mental Status Examination - Mental Status Examination Orientation: Person, Place, Situation, Time Memory: Intact Mood: Neutral Affect: Constricted Speech: Soft Attention: WNL Concentration: WNL Association: WNL Fund of Knowledge: WNL Formal Thought Process: No Impairment Description of patient's judgement and insight: good, fair Psychotic Thoughts and Behaviors: denies any AVH Suicidal Ideation: No Current Homicidal Ideation?: No Discharge Summary - Discharge Note Reason for Hospitalization: Pt is a 32 year old AAM, male who presented to [facility] today for depressed mood and suicidal ideation. [employer] is familiar with this patient. Patient has been admitted to [facility] multiple times. He was last discharged few weeks ago. Pt is homeless and presented S/I. Pt stated, "I would jump off a roof or anything that's an object." Pt denies hx of Psych and currently denies A/V/T hallucinations. Pt stated, "I want to kill my friends because they messed around with a girl I messed with." Pt reported he has has S/I and thoughts for a long time but currently is not on any medication and denies psych treatments. Pt stated he was in the [facility] 5 months ago and wants to go back; when asked why pt did not go back upon d/c on 01/02/18 to the [facility] as was instructed pt said, "I don't know but I want to go back now." Pt drinks about 2-3 beers on a daily basis, smoke marijuana occassionally, smokes 1-6 PCP daily and smokes 7-8 cigs daily. he appeared paranoid and delusional. He denies any withdrawal symptoms. He reports depressed mood, feelings of hopelessness and helplessness. He reports poor sleep and poor appetite. He appears somewhat disorganized and internally preoccupied. However he denies any auditory or visual hallucinations. Consultations:: List each consultation separately and include: 1. Reason for request. 2. Findings. 3. Follow-up Summary of Hospital Course include:: 1. Description of specific treatment plan utilized for patients during their course of treatmen. 2. Summarize the time- course for resolution of acute symptoms and/or regressed behaviors. 3. Describe issues identified and worked on during hospitalization. 4. Describe medication utilized. 5. Describe medical problems identified and treated. 6. Reassessment of suicide risk Summary of Hospital Course: During the course of his stay, patient (pt) started progressively improving and he no longer remained irritable, depressed, and suicidal. His mood was improved and he started attending groups and meetings and started socializing. Patient denied any feelings of hopelessness, helplessness, and worthlessness, denied any problem with the sleep or appetite, denied suicidal ideation or homicidal ideation. Pt denied any auditory or visual hallucinations. Some changes were made in his current medications and patient was discharged on following medications. He tolerated these medications very well and denied any side effects. CBT and RI were used. Patient was discharged to the [facility]. - Final Diagnosis (DSM 5) Condition upon Discharge: FAIR DSM 5: Bipolar disorder MRE mixed severe without psychotic features Alcohol use disorder moderate PCP use disorder severe Cannabis use disorder severe Disposition: HOME/ ROUTINE Follow-up Treatment Plan: Education: Pt was educated and counseled about the risks and benefits of taking and not taking medications. Pt was educated and counseled about the risks of drinking and abusing drugs. Pt was educated and counseled to go to the ER or call 911 if pt develop suicidal ideation or homicidal ideation, worsening of symptoms or severe side effects of the meds. Prescriptions/Medication Reconciliation: ARIPiprazole [Abilify] 10 mg PO HS #30 tab traZODone [Desyrel] 100 mg PO HS PRN #30 tab PRN Reason: Insomnia - Smoking Cessation Smoking Cessation Medication prescribed: No - Antipsychotic Medications Pt discharged on 2 or more routine antipsychotic medications: No
== END 2018-02-04 10:36 | disposition home or self-care (01) | DRG 430 ==
LOC: C.ER 16:00 → C.5E 18:27
PROC: GZHZZZZ Group Psychotherapy (ICD-10-PCS; principal; 2018-01-29)
DX: F31.63 Bipolar disorder, current episode mixed, severe, without psychotic features (principal); F16.10 Hallucinogen abuse, uncomplicated; R45.851 Suicidal ideations; Z59.0 Homelessness; F10.10 Alcohol abuse, uncomplicated; F12.10 Cannabis abuse, uncomplicated; F17.210 Nicotine dependence, cigarettes, uncomplicated